=== PATIENT | male | born 1970 | race Caucasian/White ===

== ENCOUNTER 2021-08-27 17:04 | Emergency (ER) | payer OTHER, SELFPAY ==
[2021-08-27 17:12] VITALS: BP 160/94; PULSE 74; RESP 14; TEMP 36.7; O2SAT 98
--- NOTE | 2021-08-27 17:16 | ED.URI ---
HPI - URI/Sore Throat General Chief Complaint: Upper Respiratory Infection Stated Complaint: congestion fever Time Seen by Provider: 08/27/21 17:16 Source: patient Limitations: no limitations History of Present Illness HPI Narrative: Zeb is a 51-year-old male patient who ambulated into the [facility]. Patient states he has a 3 to 4-day history of fever and congestion. Patient denies any body aches, chills, or cough. Patient states he was exposed to a coworker with influenza last week. Patient states he came in to see if he needed antibiotic patient is using [id number] Mucinex. MD elicited complaint: nasal congestion Review of Systems Review of Systems: CONSTITUTIONAL: Denies body aches,+ fever, denies chills, or sweats. EYES: Denies visual changes, redness, or discharge. ENT: Denies rhinorrhea,+ congestion, denies sore throat, or otalgia. CARDIOVASCULAR: Denies chest pain, palpitations, or edema. RESPIRATORY: Denies cough or dyspnea. GASTROINTESTINAL: Denies abdominal pain, nausea, vomiting, or diarrhea. GENITOURINARY: Denies dysuria or hematuria. SKIN: Denies rash, itching, or wounds. MUSCULOSKELETAL: Denies back pain, joint pain, or myalgia. NEUROLOGIC: Denies headache, numbness, tingling, or weakness. PSYCH: Denies depression or anxiety. All systems reviewed & are unremarkable except as noted in HPI and below PMFSH Comments At time of signature, I have reviewed and agree with nursing past medical, surgical, social and family history unless otherwise noted. Please see nursing chart for further information. There is no relevant family history pertinent to the presenting complaint Exam Narrative: GENERAL: Well-appearing, well-nourished, and in no acute distress. HEAD: Normocephalic, atraumatic. EYES: EOMI. No redness or drainage. Conjunctivae normal. ENT: Mucous membranes pink and moist. Nares erythematous with clear rhinorrhea. Bilateral tympanic membranes are dull with minimal fluid no erythema. No exudate is noted. Posterior pharynx is erythemic with mild edema. Uvula midline. NECK: Normal AROM. Supple. CHEST: No respiratory distress. Clear to auscultation. MUSCULOSKELETAL: No bony tenderness. EXTREMITIES: Normal range of motion. No edema. SKIN: Warm, dry, no rash. Capillary refill normal. Normal skin turgor. NEURO: No focal deficits. Alert and oriented x3. Gait steady. PSYCH: Normal affect. No signs of depression or anxiety. Course Vital Signs Vital signs: Vital Signs Temperature 36.7 C 08/27/21 17:12 Pulse Rate 74 08/27/21 17:12 Respiratory Rate 14 08/27/21 17:12 Blood Pressure 160/94 H 08/27/21 17:12 Pulse Oximetry 98 08/27/21 17:12 Temperature 36.7 C 08/27/21 17:12 Pulse Rate 74 08/27/21 17:12 Respiratory Rate 14 08/27/21 17:12 Blood Pressure 160/94 H 08/27/21 17:12 Pulse Oximetry 98 08/27/21 17:12 Reviewed. Pt has been instructed to follow up with his PCP regarding his elevated blood pressure today. MDM - URI/Sore Throat MDM Narrative Medical decision making narrative: Influenza a/B is negative. Patient will be diagnosed with nasopharyngitis. Patient to use [id number] cough and cold medicine rapid COVID-19 is positive. Patient will use [id number] cough and cold medicine. Patient to quarantine for 10 days as he is symptomatic. Differential Diagnosis Differential diagnosis: Likely upper respiratory infection, sinusitis and influenza Medical Records Attestation: I reviewed the patient's medical records. Lab Data Attestation: I reviewed the patient's lab results. Critical Care Time Critical Care Time Critical Care Time: No Discharge Plan Discharge Clinical Impression: COVID Patient Disposition: Home, Self-Care Condition: Stable Instructions: Antibiotic Form, COVID-19 (Coronavirus Disease 2019) (ED) Additional Instructions: Use bkqy-goa-jevodon cold medication as directed. May use Tylenol or ibuprofen Follow-up with janki
== END 2021-08-27 17:48 | disposition home or self-care (01) ==
PROVIDERS: Emergency Provider Nurse Practitioner Family
DX: U07.1 COVID-19 (principal)
CPT/HCPCS: 87426; 87804; 99213; C9803; G0463